=== PATIENT | female | born 1980 | race Asian ===

== ENCOUNTER 2016-11-21 21:29 | Emergency (ER) | payer OTHER ==
[~2016-11-21] VITALS: Ht 162.6 cm; Wt 59.0 kg
[2016-11-21] MEDS ORDERED: ONDANSETRON HCL 4 MG/2 ML VIAL ONE (21:33)
[2016-11-21] MEDS ORDERED: HYDROmorphone HCL 2 MG/ML VL ONE (21:33)
[2016-11-21] MEDS ORDERED: HYDROmorphone HCL 2 MG/ML VL IV ONE (21:45)
[2016-11-21] MEDS ORDERED: ONDANSETRON HCL 4 MG/2 ML VIAL IV ONE (21:45)
[2016-11-21 21:55] LABS: Basophils # (auto) 0.1 uL; Basophils % (auto) 0.8 % (0.0-2.0); DEFINITIVE VIEW TRANSMISSION; Eosinophils # (auto) 0.1 uL; Eosinophils % (auto) 1.9 % (0.0-7.0); Hematocrit 35.8 % (36.0-46.0); Hemoglobin 11.9 g/dL (12.2-16.2); Lymphocytes # (auto) 1.6 uL; Lymphocytes % (auto) 20.8 % (10.0-50.0); Mean Corpuscular Hemoglobin 26.6 pg (28.0-32.0); Mean Corpuscular Hgb Conc. 33.4 g/dL (32.0-36.0); Mean Corpuscular Volume 79.7 fL (80.0-100.0); Mean Platelet Volume 8.3 fL (7.4-10.4); Monocytes # (auto) 0.7 uL; Neutrophils # (auto) 5.3 uL; Neutrophils % (auto) 67.5 % (37.0-80.0); Platelet Count (auto) 440 10^3/uL (140-450); White Blood Cell 7.9 10^3/uL (4.4-10.8)
[2016-11-21 22:07] VITALS: BP 136/90
[2016-11-21 22:18] LABS: Albumin 3.9 g/dL (3.4-5.0); BUN/Creatinine Ratio 12.7; Bilirubin, Total 0.2 mg/dL (0.2-1.0); Calcium 9.7 mg/dL (8.5-10.1); Magnesium 2.1 mg/dL (1.6-2.6); Total Protein 7.5 g/dL (6.4-8.2)
[2016-11-21 22:35] LABS: INR 1.03 (0.9-1.15); Partial Thromboplastin Time 23.6 sec (22.64-33.71); Prothrombin Time 10.6 sec (9.37-12.3)
== END 2016-11-21 23:26 | disposition home or self-care (01) ==
LOC: ER 21:31
DX: K86.9 Disease of pancreas, unspecified (principal); I10 Essential (primary) hypertension; E07.9 Disorder of thyroid, unspecified; Z88.6 Allergy status to analgesic agent
CPT/HCPCS: 36415; 74176; 80053; 82150; 83690; 83735; 84702; 85025; 85610; 85730; 96374; 96375; 99285; J1170; J2405

== ENCOUNTER → 2017-02-21 | Outpatient (CLI) | payer OTHER | END | disposition home or self-care (01) | LOC: LAB 04:21 | PROVIDERS: ATTEND Family Medicine | DX: Z00.00 Encounter for general adult medical examination without abnormal findings (principal) | CPT/HCPCS: 36415; 82565; 84520 ==

== ENCOUNTER 2017-08-22 15:03 | Inpatient (IN) | payer OTHER ==
[~2017-08-22] VITALS: Ht 160 cm; Wt 65.7 kg
[2017-08-22] MEDS ORDERED: SODIUM CHLORIDE 0.9% 1,000 ML IV ONE ×2 (15:24)
[2017-08-22] MEDS ORDERED: MORPHINE SULF INJ 2 MG/ML SYRINGE 1ML IV ONE ×3 (15:30→17:15)
[2017-08-22] MEDS ORDERED: ONDANSETRON HCL 4 MG/2 ML VIAL IV ONE ×2 (15:30→23:15)
[2017-08-22 16:00] LABS: Basophils # (auto) 0 uL; Eosinophils % (auto) 2.8 % (0.0-7.0); Hemoglobin 12.7 g/dL (12.2-16.2); Lymphocytes # (auto) 1.5 uL
[2017-08-22 16:02] LABS: Basophils % (auto) 0.3 % (0.0-2.0); Eosinophils # (auto) 0.2 uL; Hematocrit 38.3 % (36.0-46.0); Lymphocytes % (auto) 17.1 % (10.0-50.0); Mean Corpuscular Hemoglobin 26.7 pg (28.0-32.0); Mean Corpuscular Hgb Conc. 33.2 g/dL (32.0-36.0); Mean Corpuscular Volume 80.4 fL (80.0-100.0); Mean Platelet Volume 7.5 fL (6.9-10.8); Monocytes # (auto) 0.5 uL; Monocytes % (auto) 5.3 % (0.0-12.0); Neutrophils # (auto) 6.7 uL; Neutrophils % (auto) 74.5 % (37.0-80.0); Nucleated Red Blood Cells % 0.2 %; Platelet Count (auto) 363 10^3/uL (140-450); White Blood Cell 8.9 10^3/uL (4.4-10.8)
[2017-08-22 16:14] LABS: Urine Bilirubin Negative (Negative); Urine Blood 3+ /uL (Negative); Urine Ca Oxalate Crystal FEW (None Seen); Urine Color Yellow (Yellow); Urine Glucose Normal (Normal); Urine Ketone Negative (Negative); Urine Mucus FEW (None Seen); Urine Nitrite Negative (Negative); Urine RBC 516 /hpf (0 - 4); Urine Squamous Epithelial Cell FEW /hpf (<5); Urine Urobilinogen Normal (Negative); Urine pH 5.5 (5.0-8.0)
[2017-08-22] MEDS ORDERED: cefTRIAXone 1GM/10ml IVPUSH 10 ML IV ONE (16:30)
[2017-08-22] MEDS ORDERED: HYDROmorphone HCL 2 MG/ML VL IV ONE (16:30)
[2017-08-22 16:32] LABS: Albumin 4.3 g/dL (3.4-5.0); Alkaline Phosphatase 52 U/L (45-117); Amylase 56 U/L (25-115); Anion Gap 11 (5-15); Aspartate Aminotransferase 12 U/L (15-37); BUN/Creatinine Ratio 18.7; Bilirubin, Total 0.3 mg/dL (0.2-1.0); Blood Urea Nitrogen 14 mg/dL (7-18); Calcium 10.2 mg/dL (8.5-10.1); Carbon Dioxide 23 mmol/L (21-32); Chloride 102 mmol/L (98-107); GFR African American 111 mL/min; GFR Non-African American 91 mL/min; Glucose 129 mg/dL (74-106); Potassium 3.4 mmol/L (3.5-5.1); Sodium 136 mmol/L (136-145); Total Protein 8.3 g/dL (6.4-8.2)
[2017-08-22] MEDS ORDERED: metroNIDAZOLE 500MG/100ML 100 ML IV ONE (16:45)
[2017-08-22] MEDS ORDERED: PROMETHAZINE HCL 25 MG/ML 1ML IV ONE (16:45)
[2017-08-22 17:25] LABS: INR 0.92 (0.9-1.15)
[2017-08-22] MEDS ORDERED: ONDANSETRON HCL 4 MG/2 ML VIAL ONE (22:36)
[2017-08-22] MEDS: MORPHINE SULF INJ 2 MG/ML SYRINGE 1ML IV PRN (23:39)
[2017-08-23] VITALS: BP 110/78
[2017-08-23] MEDS ORDERED: AMLO5TAB2 PO (00:40)
[2017-08-23] MEDS ORDERED: LEVO100T8 PO (00:40)
[2017-08-23] MEDS ORDERED: CARV25TA55 PO (00:40)
[2017-08-23] MEDS ORDERED: POTASSIUM CHL 10 Meq TABLET PO ONE (01:15)
[2017-08-23] MEDS: metroNIDAZOLE 500MG/100ML 100 ML IV SCH ×3 (01:34→18:04)
[2017-08-23 05:00] VITALS: BP 100/65
[2017-08-23] MEDS: LEVOTHYROXINE SODIUM 100 MCG TAB PO SCH (05:57)
[2017-08-23 06:11] LABS: Basophils # (auto) 0 uL; Basophils % (auto) 0.4 % (0.0-2.0); Eosinophils # (auto) 0.2 uL; Monocytes # (auto) 0.5 uL; Monocytes % (auto) 6.3 % (0.0-12.0); Neutrophils % (auto) 64.2 % (37.0-80.0)
[2017-08-23 06:13] LABS: Eosinophils % (auto) 2.6 % (0.0-7.0); Hematocrit 36.3 % (36.0-46.0); Lymphocytes # (auto) 2.2 uL; Lymphocytes % (auto) 26.5 % (10.0-50.0); Mean Corpuscular Hgb Conc. 33.1 g/dL (32.0-36.0); Mean Corpuscular Volume 81.6 fL (80.0-100.0); Mean Platelet Volume 7.8 fL (6.9-10.8); Neutrophils # (auto) 5.4 uL; Nucleated Red Blood Cells % 0.1 %; Platelet Count (auto) 369 10^3/uL (140-450); White Blood Cell 8.3 10^3/uL (4.4-10.8)
[2017-08-23 06:41] LABS: BUN/Creatinine Ratio 15.5; Calcium 9.4 mg/dL (8.5-10.1); Potassium 3.3 mmol/L (3.5-5.1)
[2017-08-23] MEDS ORDERED: SUCCINYLCHOLINE CHLORIDE 20 MG/ML 10ML VIAL IV ONE (06:49)
[2017-08-23] MEDS ORDERED: SODIUM CHLORIDE LOCK 10 ML ONE (06:58)
[2017-08-23] MEDS ORDERED: MIDAZOLAM HCL 1MG/1ML-2 ML VIAL ONE (06:58)
[2017-08-23] MEDS ORDERED: PROPOFOL 10 MG/ML 20 ML IV ONE (06:58)
[2017-08-23] MEDS ORDERED: fentaNYL CITRATE 100 MCG/2 ML VL ONE (06:58)
[2017-08-23] MEDS ORDERED: GLYCOPYRROLATE 0.2 MG/ML 1ML VIAL ONE (06:58)
[2017-08-23] MEDS ORDERED: MEPERIDINE HCL (50 MG/ML) 1 ML VIAL ONE (06:58)
[2017-08-23] MEDS ORDERED: NEOSTIGMINE 1 MG/ML INJ (10mg/10ML VIAL) ONE (06:58)
[2017-08-23] MEDS ORDERED: KETOROLAC TROMETH 60MG/2ML VIAL IM ONE (06:58)
[2017-08-23] MEDS ORDERED: ONDANSETRON HCL 4 MG/2 ML VIAL ONE (06:58)
[2017-08-23] MEDS ORDERED: ROCURONIUM 10MG/ML 10ML VIAL IV ONE (06:58)
[2017-08-23] MEDS ORDERED: ceFAZolin 1GM/50ML 50 ML IV ONE (07:05)
[2017-08-23] MEDS ORDERED: HYDROmorphone HCL 2 MG/ML VL IV PRN (07:30)
[2017-08-23] MEDS ORDERED: METOCLOPRAMIDE HCL 5MG/ml INJ 2ml VIAL IV ONE (07:30)
[2017-08-23] MEDS ORDERED: ACCU-CHEK COMFORT CURVE STRIP VI ONE (07:30)
[2017-08-23 09:00] VITALS: BP 125/75
[2017-08-23] MEDS: amLODIPine BESYLATE 5 MG TAB PO SCH (10:00)
[2017-08-23] MEDS: ONDANSETRON HCL 4 MG/2 ML VIAL IV PRN ×2 (12:04→21:51)
[2017-08-23] MEDS: MORPHINE SULF INJ 2 MG/ML SYRINGE 1ML IV PRN ×2 (12:04→21:37)
[2017-08-23 13:00] VITALS: BP 115/70
[2017-08-23 17:00] VITALS: BP 101/60
[2017-08-23 21:27] VITALS: BP 127/70
[2017-08-23] MEDS: CARVEDILOL 12.5 MG TAB PO SCH (21:38)
[2017-08-23] MEDS: cefTRIAXone 1GM/10ml IVPUSH 10 ML IV SCH (21:50)
[2017-08-24] VITALS (7 sets, daily range): BP systolic 104–123; BP diastolic 63–82
[2017-08-24] MEDS: metroNIDAZOLE 500MG/100ML 100 ML IV SCH ×3 (01:52→18:36)
[2017-08-24] MEDS: LEVOTHYROXINE SODIUM 100 MCG TAB PO SCH (06:26)
[2017-08-24] MEDS: amLODIPine BESYLATE 5 MG TAB PO SCH (09:40)
[2017-08-24] MEDS ORDERED: DOCUSATE SOD 100 MG CAP PO ONE (10:15)
[2017-08-24] MEDS: DOCUSATE SOD 100 MG CAP PO SCH (22:00)
[2017-08-24] MEDS: cefTRIAXone 1GM/10ml IVPUSH 10 ML IV SCH (22:01)
[2017-08-24] MEDS: CARVEDILOL 12.5 MG TAB PO SCH (22:02)
[2017-08-25] MEDS: metroNIDAZOLE 500MG/100ML 100 ML IV SCH ×2 (02:56→09:17)
[2017-08-25 05:18] VITALS: BP 124/67
[2017-08-25] MEDS: LEVOTHYROXINE SODIUM 100 MCG TAB PO SCH (06:56)
[2017-08-25 07:48] VITALS: BP 135/80
[2017-08-25] MEDS: ONDANSETRON HCL 4 MG/2 ML VIAL IV PRN (08:20)
[2017-08-25] MEDS: amLODIPine BESYLATE 5 MG TAB PO SCH (09:17)
[2017-08-25] MEDS: DOCUSATE SOD 100 MG CAP PO SCH (09:17)
[2017-08-25 09:44] VITALS: BP 135/80
== END 2017-08-25 10:25 | disposition home or self-care (01) | DRG 343 ==
LOC: ER 15:19 → OVERFLOW 15:20 → EAST 23:55
PROVIDERS: ADMIT Nurse Practitioner Family; ATTEND Internal Medicine
PROC: 0DTJ4ZZ Resection of Appendix, Percutaneous Endoscopic Approach (ICD-10-PCS; principal; 2017-08-23 07:29)
DX: K35.80 Unspecified acute appendicitis (principal); E03.9 Hypothyroidism, unspecified; I10 Essential (primary) hypertension; Z88.6 Allergy status to analgesic agent
CPT/HCPCS: 36415; 74176; 76705; 80048; 80053; 81001; 82150; 82962; 83690; 84443; 84484; 84702; 85025; 85610; 86850; 86900; 86901; 87040; 87081; 96361; 96365; 96368; 96375; J0330; J0690; J1885; J2250; J2405; J2704; J3490

== ENCOUNTER 2017-12-19 01:38 | Emergency (ER) | payer BC, OTHER ==
[~2017-12-19] VITALS: Ht 160 cm; Wt 65.8 kg
[~2017-12-19 01:38] MED LIST: AMLO5TAB2 PO; CARV25TA55 PO; LEVO100T8 PO
[2017-12-19] MEDS ORDERED: ONDANSETRON HCL 4 MG/2 ML VIAL IV ONE (02:00)
[2017-12-19] MEDS ORDERED: MEPERIDINE HCL (25 MG/ML) 1ML VIAL IV ONE (02:00)
[2017-12-19 02:35] LABS: Eosinophils # (auto) 0.2 uL; Hemoglobin 11.8 g/dL (12.2-16.2); Mean Corpuscular Hemoglobin 26.4 pg (28.0-32.0)
[2017-12-19 02:37] LABS: Basophils # (auto) 0 uL; Basophils % (auto) 0.4 % (0.0-2.0); Eosinophils % (auto) 2.1 % (0.0-7.0); Hematocrit 35.9 % (36.0-46.0); Lymphocytes # (auto) 3.1 uL; Lymphocytes % (auto) 27.4 % (10.0-50.0); Mean Corpuscular Volume 79.9 fL (80.0-100.0); Monocytes # (auto) 0.9 uL; Monocytes % (auto) 7.8 % (0.0-12.0); Neutrophils % (auto) 62.3 % (37.0-80.0); Platelet Count (auto) 354 10^3/uL (140-450); Red Blood Cells 4.49 10^6/uL (4.0-5.20); Red Cell Distribution Width 14.9 % (11.8-14.3); White Blood Cell 11.3 10^3/uL (4.4-10.8)
[2017-12-19] MEDS ORDERED: MEPERIDINE HCL (50 MG/ML) 1 ML VIAL IV ONE (02:45)
[2017-12-19 02:54] LABS: Albumin 4.4 g/dL (3.4-5.0); BUN/Creatinine Ratio 14.3; Calcium 10.4 mg/dL (8.5-10.1); Potassium 3.3 mmol/L (3.5-5.1)
[2017-12-19 02:57] LABS: Bilirubin, Total 0.4 mg/dL (0.2-1.0); Total Protein 7.8 g/dL (6.4-8.2)
[2017-12-19 04:00] VITALS: BP 132/67
[2017-12-19 05:07] LABS: Urine Bacteria NONE SEEN /hpf (None Seen); Urine Blood 3+ /uL (Negative); Urine Specific Gravity 1.007 (1.001-1.035); Urine WBC 16 /hpf (0 - 5)
== END 2017-12-19 05:12 | disposition home or self-care (01) ==
LOC: EEVIPCON 01:40 → ER 01:40
DX: N80.9 Endometriosis, unspecified (principal); N94.6 Dysmenorrhea, unspecified; I10 Essential (primary) hypertension; E07.9 Disorder of thyroid, unspecified; D72.823 Leukemoid reaction; Z90.49 Acquired absence of other specified parts of digestive tract; Z88.6 Allergy status to analgesic agent; Z79.899 Other long term (current) drug therapy
CPT/HCPCS: 36415; 80053; 81001; 85025; 96374; 96375; 96376; 99284; J2175; J2405

== ENCOUNTER → 2018-01-11 | Outpatient (CLI) | payer BC ==
[2018-01-11 08:23] LABS: Basophils # (auto) 0 uL; Eosinophils # (auto) 0.3 uL; Hemoglobin 11.8 g/dL (12.2-16.2); Lymphocytes # (auto) 2.3 uL; Monocytes % (auto) 8.7 % (0.0-12.0)
[2018-01-11 08:26] LABS: Basophils % (auto) 0.6 % (0.0-2.0); Eosinophils % (auto) 4.9 % (0.0-7.0); Lymphocytes % (auto) 36.4 % (10.0-50.0); Mean Corpuscular Hemoglobin 26.2 pg (28.0-32.0); Mean Corpuscular Hgb Conc. 32.8 g/dL (32.0-36.0); Mean Corpuscular Volume 79.9 fL (80.0-100.0); Monocytes # (auto) 0.6 uL; Neutrophils # (auto) 3.2 uL; Neutrophils % (auto) 49.4 % (37.0-80.0); Nucleated Red Blood Cells % 0.1 %; Platelet Count (auto) 351 10^3/uL (140-450); Red Cell Distribution Width 14.5 % (11.8-14.3); White Blood Cell 6.4 10^3/uL (4.4-10.8)
[2018-01-11 08:46] LABS: Albumin 4.2 g/dL (3.4-5.0); BUN/Creatinine Ratio 11.5; Bilirubin, Total 0.3 mg/dL (0.2-1.0); Calcium 9.5 mg/dL (8.5-10.1); Potassium 3.4 mmol/L (3.5-5.1); Total Protein 7.7 g/dL (6.4-8.2); Uric Acid 4.4 mg/dL (2.6-6.0)
[2018-01-11 08:49] LABS: Urine Bacteria NONE SEEN /hpf (None Seen); Urine Blood Negative /uL (Negative); Urine Specific Gravity 1.017 (1.001-1.035); Urine WBC 2 /hpf (0 - 5)
== END | disposition home or self-care (01) ==
LOC: LAB 07:44
DX: Z00.01 Encounter for general adult medical examination with abnormal findings (principal); I10 Essential (primary) hypertension; E03.9 Hypothyroidism, unspecified; N89.9 Noninflammatory disorder of vagina, unspecified
CPT/HCPCS: 36415; 80053; 80061; 81001; 82306; 82607; 83036; 83735; 84443; 84550; 85025

== ENCOUNTER 2018-04-24 08:56 | Day surgery (SDC) | payer BC ==
[2018-04-20 14:53] LABS: Basophils # (auto) 0 uL; Eosinophils # (auto) 0.3 uL; Hemoglobin 12.3 g/dL (12.2-16.2); Lymphocytes # (auto) 2.8 uL; Mean Corpuscular Hgb Conc. 31.8 g/dL (32.0-36.0); Monocytes # (auto) 0.7 uL; Neutrophils # (auto) 3.9 uL; Nucleated Red Blood Cells % 0.1 %
[2018-04-20 14:54] LABS: Basophils % (auto) 0.6 % (0.0-2.0); Eosinophils % (auto) 4.1 % (0.0-7.0); Hematocrit 38.7 % (36.0-46.0); Lymphocytes % (auto) 36.5 % (10.0-50.0); Mean Corpuscular Volume 78.5 fL (80.0-100.0); Monocytes % (auto) 8.8 % (0.0-12.0); Platelet Count (auto) 426 10^3/uL (140-450); Red Blood Cells 4.92 10^6/uL (4.0-5.20); Red Cell Distribution Width 14.7 % (11.8-14.3); White Blood Cell 7.7 10^3/uL (4.4-10.8)
[2018-04-20 15:01] LABS: Urine Bacteria FEW /hpf (None Seen); Urine Blood TRACE /uL (Negative); Urine Mucus FEW (None Seen); Urine WBC 3 /hpf (0 - 5)
[2018-04-20 15:13] LABS: INR 0.9 (0.9-1.15); Prothrombin Time 9.7 sec (9.27-12.13)
[2018-04-20 15:18] LABS: Albumin 4.2 g/dL (3.4-5.0); BUN/Creatinine Ratio 12.2; Bilirubin, Total 0.3 mg/dL (0.2-1.0); Calcium 10.1 mg/dL (8.5-10.1); Potassium 3.4 mmol/L (3.5-5.1); Total Protein 8.2 g/dL (6.4-8.2)
[~2018-04-24] VITALS: Ht 160 cm; Wt 66.2 kg
[~2018-04-24 08:56] MED LIST changes: +METF-370 PO; +SIMV-8 PO
[2018-04-24] MEDS ORDERED: ceFAZolin 1GM/50ML 50 ML IV ONE (09:06)
[2018-04-24] MEDS ORDERED: MIDAZOLAM HCL 1MG/1ML-2 ML VIAL ONE (10:22)
[2018-04-24] MEDS ORDERED: fentaNYL CITRATE 100 MCG/2 ML VL ONE (10:22)
[2018-04-24] MEDS ORDERED: DEXAMETHASONE SOD PHOS 10MG/1ML VIAL INJ ONE (10:27)
[2018-04-24] MEDS ORDERED: PROPOFOL 10 MG/ML 20 ML IV ONE (10:28)
[2018-04-24] MEDS ORDERED: ONDANSETRON HCL 4 MG/2 ML VIAL IV ONE (10:45)
[2018-04-24] MEDS ORDERED: MORPHINE SULFATE 4 MG/ML SYR/VIAL IV PRN (10:45)
[2018-04-24] MEDS ORDERED: LABETALOL HCL 5 MG/ML 4ML SYRINGE IV PRN (10:45)
[2018-04-24] MEDS ORDERED: ePHEDrine SULFATE 50 MG/ML AMP IV PRN (10:45)
[2018-04-24] MEDS ORDERED: MIDAZOLAM HCL 1MG/1ML-2 ML VIAL IV PRN (10:45)
[2018-04-24] MEDS ORDERED: KETOROLAC TROMETH 30 MG/ML 1ML VIAL IV ONE (11:15)
[2018-04-24 11:42] VITALS: BP 122/73
[2018-04-24] MEDS ORDERED: MORPHINE SULFATE 4 MG/ML SYR/VIAL IV ONE (12:00)
== END 2018-04-24 11:50 | disposition home or self-care (01) ==
LOC: SUR 08:56
PROVIDERS: ATTEND Urology
DX: N20.0 Calculus of kidney (principal); E28.2 Polycystic ovarian syndrome; N80.9 Endometriosis, unspecified; D21.9 Benign neoplasm of connective and other soft tissue, unspecified; I10 Essential (primary) hypertension; E03.9 Hypothyroidism, unspecified; E11.9 Type 2 diabetes mellitus without complications; Z88.6 Allergy status to analgesic agent; Z90.49 Acquired absence of other specified parts of digestive tract; Z80.0 Family history of malignant neoplasm of digestive organs; Z82.49 Family history of ischemic heart disease and other diseases of the circulatory system; Z79.84 Long term (current) use of oral hypoglycemic drugs; Z79.899 Other long term (current) drug therapy
CPT/HCPCS: 36415; 50590; 80053; 81001; 84702; 85025; 85610; 85730; J0690; J1100; J2250; J2704; J3010

== ENCOUNTER → 2018-07-05 | Outpatient (CLI) | payer BC ==
[~2018-07-05] MED LIST changes: +AMLO5TAB13 PO; -AMLO5TAB2 PO
[2018-07-05 11:23] LABS: Cholesterol 156 mg/dL (< 200); Triglycerides 105 mg/dL (< 150)
[2018-07-05 11:24] LABS: HDL Cholesterol 61 mg/dL (40-59); LDL Cholesterol 87 mg/dL (< 100)
[2018-07-05 11:39] LABS: Follicle Stimulating Hormone 7.16 IU/L (SEE BELOW); Leuteinizing Hormone 5.1 IU/L; Prolactin 11.11 ng/mL (2.8-29.2)
== END | disposition home or self-care (01) ==
LOC: LAB 10:09
PROVIDERS: ATTEND Specialist
DX: E28.2 Polycystic ovarian syndrome (principal); I10 Essential (primary) hypertension; E03.9 Hypothyroidism, unspecified
CPT/HCPCS: 36415; 80061; 82626; 83001; 83002; 83036; 83525; 84146; 84403; 84443

== ENCOUNTER 2018-07-15 08:13 | Emergency (ER) | payer BC ==
[~2018-07-15] VITALS: Ht 160 cm; Wt 66.2 kg
[2018-07-15] MEDS ORDERED: SODIUM CHLORIDE 0.9% 1,000 ML IV ONE ×2 (08:47)
[2018-07-15 08:53] LABS: Urine Bacteria NONE SEEN /hpf (None Seen); Urine Blood Negative /uL (Negative); Urine Specific Gravity 1.008 (1.001-1.035); Urine WBC 1 /hpf (0 - 5)
[2018-07-15] MEDS ORDERED: KETOROLAC TROMETH 30 MG/ML 1ML VIAL IV ONE (09:00)
[2018-07-15 09:10] LABS: Basophils # (auto) 0.1 uL; Eosinophils # (auto) 0.3 uL; Hemoglobin 11.1 g/dL (12.2-16.2); Lymphocytes # (auto) 2.1 uL; Monocytes # (auto) 0.6 uL; Neutrophils # (auto) 5.3 uL
[2018-07-15 09:13] LABS: Basophils % (auto) 0.6 % (0.0-2.0); Eosinophils % (auto) 3.3 % (0.0-7.0); Hematocrit 35.6 % (36.0-46.0); Lymphocytes % (auto) 25.6 % (10.0-50.0); Mean Corpuscular Hemoglobin 23.5 pg (28.0-32.0); Mean Corpuscular Hgb Conc. 31.2 g/dL (32.0-36.0); Mean Corpuscular Volume 75.3 fL (80.0-100.0); Monocytes % (auto) 6.9 % (0.0-12.0); Neutrophils % (auto) 63.6 % (37.0-80.0); Platelet Count (auto) 453 10^3/uL (140-450); Red Blood Cells 4.72 10^6/uL (4.0-5.20); White Blood Cell 8.3 10^3/uL (4.4-10.8)
[2018-07-15 09:28] LABS: Albumin 4.1 g/dL (3.4-5.0); Calcium 10.6 mg/dL (8.5-10.1); Potassium 3.7 mmol/L (3.5-5.1)
[2018-07-15 09:34] LABS: BUN/Creatinine Ratio 13.5; Bilirubin, Total 0.4 mg/dL (0.2-1.0); Total Protein 7.8 g/dL (6.4-8.2)
[2018-07-15 10:28] VITALS: BP 146/56
[2018-07-15] MEDS ORDERED: TAMSULOSIN HYDROCHLORIDE 0.4 MG CAP PO ONE (11:00)
== END 2018-07-15 11:44 | disposition home or self-care (01) ==
LOC: ER 08:13
DX: N20.0 Calculus of kidney (principal); I10 Essential (primary) hypertension; E07.89 Other specified disorders of thyroid; N83.209 Unspecified ovarian cyst, unspecified side; Z90.89 Acquired absence of other organs; Z88.8 Allergy status to other drugs, medicaments and biological substances
CPT/HCPCS: 36415; 74176; 80053; 81001; 81025; 85025; 96374; 96375; 99285; J1885

== ENCOUNTER 2018-07-28 21:33 | Emergency (ER) | payer BC ==
[~2018-07-28] VITALS: Ht 160 cm; Wt 65.8 kg
[2018-07-28] MEDS ORDERED: ONDANSETRON HCL 4 MG/2 ML VIAL ONE (21:45)
[2018-07-28] MEDS ORDERED: MORPHINE SULFATE 4 MG/ML SYR/VIAL ONE (21:45)
[2018-07-28 21:57] LABS: Basophils # (auto) 0.1 uL; Basophils % (auto) 0.7 % (0.0-2.0); Eosinophils # (auto) 0.2 uL; Eosinophils % (auto) 1.8 % (0.0-7.0); Hematocrit 36.5 % (36.0-46.0); Hemoglobin 11.8 g/dL (12.2-16.2); Lymphocytes # (auto) 2.1 uL; Lymphocytes % (auto) 14.9 % (10.0-50.0); Mean Corpuscular Hemoglobin 24.2 pg (28.0-32.0); Mean Corpuscular Hgb Conc. 32.4 g/dL (32.0-36.0); Mean Corpuscular Volume 74.8 fL (80.0-100.0); Monocytes # (auto) 1.3 uL; Monocytes % (auto) 9.2 % (0.0-12.0); Neutrophils # (auto) 10.1 uL; Neutrophils % (auto) 73.4 % (37.0-80.0); Platelet Count (auto) 415 10^3/uL (140-450); Red Blood Cells 4.88 10^6/uL (4.0-5.20); White Blood Cell 13.8 10^3/uL (4.4-10.8)
[2018-07-28] MEDS ORDERED: MORPHINE SULFATE 4 MG/ML SYR/VIAL IV ONE (22:00)
[2018-07-28] MEDS ORDERED: ONDANSETRON HCL 4 MG/2 ML VIAL IV ONE (22:00)
[2018-07-28 22:15] LABS: Albumin 4.6 g/dL (3.4-5.0); BUN/Creatinine Ratio 9.6; Calcium 10.8 mg/dL (8.5-10.1); Potassium 3.6 mmol/L (3.5-5.1)
[2018-07-28 22:18] LABS: Bilirubin, Total 0.4 mg/dL (0.2-1.0); Total Protein 8.7 g/dL (6.4-8.2)
[2018-07-28] MEDS ORDERED: HYDROmorphone HCL 2 MG/ML VL IV ONE (23:00)
[2018-07-29] MEDS ORDERED: HYDROcodone-ACET 10/325MG TAB PO ONE (01:45)
[2018-07-29] MEDS ORDERED: cefTRIAXone 1GM/50ML D5W 50 ML IV ONE (01:45)
[2018-07-29 03:04] VITALS: BP 123/78
== END 2018-07-29 03:06 | disposition home or self-care (01) ==
LOC: ER 21:34
DX: N83.201 Unspecified ovarian cyst, right side (principal); N83.202 Unspecified ovarian cyst, left side; N39.0 Urinary tract infection, site not specified; D25.9 Leiomyoma of uterus, unspecified; I10 Essential (primary) hypertension; E07.89 Other specified disorders of thyroid; Z87.442 Personal history of urinary calculi; Z88.8 Allergy status to other drugs, medicaments and biological substances; Z88.6 Allergy status to analgesic agent
CPT/HCPCS: 36415; 74176; 76856; 80053; 84702; 85025; 96365; 96375; 99285; J0696; J1170; J2270; J2405

== ENCOUNTER → 2018-08-02 | Outpatient (CLI) | payer OTHER ==
[2018-08-02 11:16] LABS: Hepatitis B Surface Antibody Positive
[2018-08-02 12:13] LABS: Hepatitis B Surface Antigen Negative (Negative)
== END | disposition home or self-care (01) ==
LOC: LAB 09:23
PROVIDERS: ATTEND Nurse Practitioner
DX: Z77.21 Contact with and (suspected) exposure to potentially hazardous body fluids (principal); Y99.0 Civilian activity done for income or pay; Y92.239 Unspecified place in hospital as the place of occurrence of the external cause
CPT/HCPCS: 36415; 86703; 86706; 86803; 87340

== ENCOUNTER → 2018-08-02 | Outpatient (CLI) | payer BC ==
[2018-08-02 11:09] LABS: Cholesterol 228 mg/dL (< 200); HDL Cholesterol 60 mg/dL (40-59); LDL Cholesterol 149 mg/dL (< 100); Triglycerides 147 mg/dL (< 150)
[2018-08-02 11:15] LABS: Free T3 2.25 pg/mL (2.3-4.2); Free T4 (Free Thyroxine) 1.13 ng/dL (0.89-1.76)
== END | disposition home or self-care (01) ==
LOC: LAB 09:17
PROVIDERS: ATTEND Specialist
DX: E03.9 Hypothyroidism, unspecified (principal)
CPT/HCPCS: 36415; 80061; 84439; 84481

== ENCOUNTER → 2018-08-15 | Outpatient (CLI) | payer BC | END | disposition home or self-care (01) | LOC: LAB 11:17 | PROVIDERS: ATTEND Specialist | DX: D25.9 Leiomyoma of uterus, unspecified (principal); N80.9 Endometriosis, unspecified; R10.2 Pelvic and perineal pain | CPT/HCPCS: 36415; 82565; 84520 ==

== ENCOUNTER → 2018-08-31 | Day surgery (SDC) | payer BC ==
[2018-08-28 12:30] LABS: Basophils # (auto) 0 uL; Eosinophils # (auto) 0.3 uL; Hemoglobin 11.1 g/dL (12.2-16.2); Monocytes # (auto) 0.5 uL; White Blood Cell 6.1 10^3/uL (4.4-10.8)
[2018-08-28 12:32] LABS: Basophils % (auto) 0.6 % (0.0-2.0); Eosinophils % (auto) 4.7 % (0.0-7.0); Hematocrit 35.2 % (36.0-46.0); Lymphocytes # (auto) 1.9 uL; Lymphocytes % (auto) 31.5 % (10.0-50.0); Mean Corpuscular Hemoglobin 23.1 pg (28.0-32.0); Mean Corpuscular Hgb Conc. 31.4 g/dL (32.0-36.0); Mean Corpuscular Volume 73.4 fL (80.0-100.0); Monocytes % (auto) 7.9 % (0.0-12.0); Neutrophils # (auto) 3.4 uL; Neutrophils % (auto) 55.3 % (37.0-80.0); Platelet Count (auto) 353 10^3/uL (140-450); Red Cell Distribution Width 16.9 % (11.8-14.3)
[2018-08-28 12:34] LABS: Urine Bacteria NONE SEEN /hpf (None Seen); Urine Blood Negative /uL (Negative); Urine Specific Gravity 1.008 (1.001-1.035); Urine WBC 1 /hpf (0 - 5)
[2018-08-28 12:46] LABS: INR 0.92 (0.9-1.15); Prothrombin Time 9.9 sec (9.27-12.13)
[2018-08-28 12:50] LABS: Albumin 4.3 g/dL (3.4-5.0); BUN/Creatinine Ratio 14.3; Calcium 10.8 mg/dL (8.5-10.1); Potassium 3.9 mmol/L (3.5-5.1)
[2018-08-28 13:08] LABS: Bilirubin, Total 0.3 mg/dL (0.2-1.0); Total Protein 7.9 g/dL (6.4-8.2)
[~2018-08-31] VITALS: Ht 157.5 cm; Wt 66.2 kg
[~2018-08-31] MED LIST changes: +ACCU-CHEK COMFORT CURVE STRIP VI ONE; +BENZOCAINE (DENTAL) 20 % SPRAY 60ML MT ONE; +CLINDAMYCIN 600MG IV 50 ML IV ONE; +DEXAMETHASONE SOD PHOS 10MG/1ML VIAL INJ ONE; +ELAG150T PO; +HYDROmorphone HCL 2 MG/ML VL IV PRN; +KETOROLAC TROMETH 30 MG/ML 1ML VIAL IV ONE; +KETOROLAC TROMETH 30 MG/ML 1ML VIAL ONE; +LABETALOL HCL 5 MG/ML 4ML SYRINGE IV PRN; +LACTATED RINGER'S 1,000 ML IV SCH; +MEPERIDINE HCL (50 MG/ML) 1 ML VIAL ONE; +METOCLOPRAMIDE HCL 5MG/ml INJ 2ml VIAL IV ONE; +METOCLOPRAMIDE HCL 5MG/ml INJ 2ml VIAL ONE; +MIDAZOLAM HCL 1MG/1ML-2 ML VIAL IV PRN; +MIDAZOLAM HCL 1MG/1ML-2 ML VIAL ONE; +MORPHINE SULFATE 4 MG/ML SYR/VIAL IV ONE; +MORPHINE SULFATE 4 MG/ML SYR/VIAL IV PRN; +ONDANSETRON HCL 4 MG/2 ML VIAL IV ONE; +PROPOFOL 10 MG/ML 20 ML IV ONE; +ePHEDrine SULFATE 50 MG/ML AMP IV PRN; +fentaNYL CITRATE 100 MCG/2 ML VL ONE
[2018-08-31 13:49] VITALS: BP 120/74
== END | disposition home or self-care (01) ==
LOC: SUR 07:01
PROVIDERS: ATTEND Specialist
DX: D25.9 Leiomyoma of uterus, unspecified (principal); N94.6 Dysmenorrhea, unspecified; E28.2 Polycystic ovarian syndrome; N80.1 Endometriosis of ovary; I10 Essential (primary) hypertension; E03.9 Hypothyroidism, unspecified; D64.9 Anemia, unspecified; N73.6 Female pelvic peritoneal adhesions (postinfective); Z90.49 Acquired absence of other specified parts of digestive tract; Z79.84 Long term (current) use of oral hypoglycemic drugs; Z79.899 Other long term (current) drug therapy; Z88.6 Allergy status to analgesic agent
CPT/HCPCS: 36415; 49320; 80053; 81001; 84702; 85025; 85610; 85730; 86850; 86900; 86901; J1100; J1885; J2175; J2250; J2405; J2704; J2765; J3010; J3490

== ENCOUNTER 2018-12-23 04:49 | Inpatient (IN) | payer BC, OTHER ==
[~2018-12-23] VITALS: Ht 160 cm; Wt 68.8 kg
[~2018-12-23 04:49] MED LIST changes: -ACCU-CHEK COMFORT CURVE STRIP VI ONE; -BENZOCAINE (DENTAL) 20 % SPRAY 60ML MT ONE; -CLINDAMYCIN 600MG IV 50 ML IV ONE; -DEXAMETHASONE SOD PHOS 10MG/1ML VIAL INJ ONE; -HYDROmorphone HCL 2 MG/ML VL IV PRN; -KETOROLAC TROMETH 30 MG/ML 1ML VIAL IV ONE; -KETOROLAC TROMETH 30 MG/ML 1ML VIAL ONE; -LABETALOL HCL 5 MG/ML 4ML SYRINGE IV PRN; -LACTATED RINGER'S 1,000 ML IV SCH; -MEPERIDINE HCL (50 MG/ML) 1 ML VIAL ONE; -METOCLOPRAMIDE HCL 5MG/ml INJ 2ml VIAL IV ONE; -METOCLOPRAMIDE HCL 5MG/ml INJ 2ml VIAL ONE; -MIDAZOLAM HCL 1MG/1ML-2 ML VIAL IV PRN; -MIDAZOLAM HCL 1MG/1ML-2 ML VIAL ONE; -MORPHINE SULFATE 4 MG/ML SYR/VIAL IV ONE; -MORPHINE SULFATE 4 MG/ML SYR/VIAL IV PRN; -ONDANSETRON HCL 4 MG/2 ML VIAL IV ONE; -PROPOFOL 10 MG/ML 20 ML IV ONE; -ePHEDrine SULFATE 50 MG/ML AMP IV PRN; -fentaNYL CITRATE 100 MCG/2 ML VL ONE
[2018-12-23] MEDS ORDERED: SODIUM CHLORIDE 0.9% 1,000 ML IVB ONE (05:33)
[2018-12-23] MEDS ORDERED: ONDANSETRON HCL 4 MG/2 ML VIAL IV ONE (05:45)
[2018-12-23] MEDS ORDERED: HYDROmorphone HCL 2 MG/ML VL IV ONE (05:45)
[2018-12-23 06:04] LABS: Basophils # (auto) 0.1 uL; Eosinophils # (auto) 0.4 uL; Hemoglobin 13.3 g/dL (12.2-16.2); Mean Corpuscular Hemoglobin 26.9 pg (28.0-32.0); Monocytes # (auto) 0.6 uL; Red Cell Distribution Width 16.1 % (11.8-14.3); White Blood Cell 8.2 10^3/uL (4.4-10.8)
[2018-12-23 06:08] LABS: Basophils % (auto) 0.7 % (0.0-2.0); Eosinophils % (auto) 4.6 % (0.0-7.0); Hematocrit 40.4 % (36.0-46.0); Lymphocytes % (auto) 36.6 % (10.0-50.0); Mean Corpuscular Hgb Conc. 32.8 g/dL (32.0-36.0); Mean Corpuscular Volume 82.2 fL (80.0-100.0); Monocytes % (auto) 7.9 % (0.0-12.0); Neutrophils # (auto) 4.1 uL; Neutrophils % (auto) 50.2 % (37.0-80.0); Nucleated Red Blood Cells % 0.1 %; Platelet Count (auto) 339 10^3/uL (140-450); Red Blood Cells 4.92 10^6/uL (4.0-5.20)
[2018-12-23 06:15] LABS: INR 0.91 (0.9-1.15); Partial Thromboplastin Time 22.9 sec (23.78-33.04); Prothrombin Time 9.8 sec (9.27-12.13)
[2018-12-23 06:17] LABS: Albumin 4.2 g/dL (3.4-5.0); Potassium 3.8 mmol/L (3.5-5.1)
[2018-12-23 06:24] LABS: BUN/Creatinine Ratio 16.3; Bilirubin, Total 0.3 mg/dL (0.2-1.0); Calcium 10.8 mg/dL (8.5-10.1); Total Protein 7.9 g/dL (6.4-8.2)
[2018-12-23] MEDS: SODIUM CHLORIDE 0.9% 1,000 ML IV SCH ×2 (08:12→18:01)
[2018-12-23] MEDS ORDERED: LORazepam 0.5 MG TAB PO PRN (08:15)
[2018-12-23] MEDS ORDERED: MORPHINE SULF INJ 2 MG/ML SYRINGE 1ML IV PRN (08:15)
[2018-12-23] MEDS ORDERED: TEMAZEPAM 15 MG CAP PO PRN (08:15)
[2018-12-23] MEDS ORDERED: DEXTROSE (50%) 50ML SYRG IV PRN (08:15)
[2018-12-23] MEDS ORDERED: NALBUPHINE HCL 10 MG/1ml INJECTION IV PRN (08:15)
[2018-12-23] MEDS ORDERED: traMADol HCL 50 MG TAB PO PRN (08:15)
[2018-12-23] MEDS ORDERED: NITROGLYCERIN 0.4 MG SL TAB SL PRN (08:15)
[2018-12-23] MEDS ORDERED: ACETAMINOPHEN 500 MG TAB PO PRN (08:15)
[2018-12-23] MEDS ORDERED: PROMETHAZINE HCL 25 MG/ML 1ML IV PRN (08:15)
[2018-12-23 09:06] LABS: Urine Bacteria NONE SEEN /hpf (None Seen); Urine Blood Negative /uL (Negative); Urine Specific Gravity 1.012 (1.001-1.035); Urine WBC 3 /hpf (0 - 5)
[2018-12-23] MEDS ORDERED: PANTOPRAZOLE 40 MG TAB PO SCH (10:00)
[2018-12-23] MEDS: ACCU-CHEK COMFORT CURVE STRIP VI SCH ×2 (12:18→18:01)
[2018-12-23] MEDS ORDERED: CHOL100079 OR (13:03)
[2018-12-23 13:30] VITALS: BP 137/78
[2018-12-23 16:50] VITALS: BP 125/75
[2018-12-23 20:00] VITALS: BP 124/73
[2018-12-23] MEDS: PANTOPRAZOLE 40 MG TAB PO SCH (21:25)
[2018-12-23 21:45] VITALS: BP 124/73
[2018-12-24] MEDS: ACCU-CHEK COMFORT CURVE STRIP VI SCH ×4 (00:46→18:07)
[2018-12-24] MEDS: SODIUM CHLORIDE 0.9% 1,000 ML IV SCH (00:47)
[2018-12-24 05:19] VITALS: BP 112/83
[2018-12-24 08:00] VITALS: BP 118/76
[2018-12-24] MEDS ORDERED: SODIUM CHLORIDE LOCK 10 ML ONE (08:29)
[2018-12-24] MEDS ORDERED: LIDOCAINE VISCOUS 2% 15ML UD ONE (08:29)
[2018-12-24] MEDS ORDERED: MIDAZOLAM HCL 5 MG/ML-1ML VIAL ONE (08:30)
[2018-12-24] MEDS ORDERED: fentaNYL CITRATE 100 MCG/2 ML VL ONE (08:30)
[2018-12-24] MEDS ORDERED: diphenhdrAMINE HCL 50 MG/1 ML VL ONE (08:31)
[2018-12-24] MEDS: PANTOPRAZOLE 40 MG TAB PO SCH ×2 (09:33→21:50)
[2018-12-24] MEDS: SOD CHL 0.9%/ KCL 20MEQ 1,000 ML IV SCH (17:50)
[2018-12-24 20:00] VITALS: BP 145/83
[2018-12-24 21:50] VITALS: BP 145/83
[2018-12-25] MEDS: ACCU-CHEK COMFORT CURVE STRIP VI SCH ×2 (00:40→05:49)
[2018-12-25 04:47] VITALS: BP 127/77
[2018-12-25] MEDS: SOD CHL 0.9%/ KCL 20MEQ 1,000 ML IV SCH (05:49)
[2018-12-25 08:09] VITALS: BP 130/82
[2018-12-25 08:27] VITALS: BP 130/82
[2018-12-25] MEDS: PANTOPRAZOLE 40 MG TAB PO SCH (09:49)
[2018-12-25 10:24] VITALS: BP 130/82
== END 2018-12-25 11:00 | disposition home or self-care (01) | DRG 392 ==
LOC: ER 04:49 → EEVIPCON 04:49 → TELE 08:12 → TELE-WESTW 11:36 → WEST WING 12-24 16:48
PROVIDERS: ADMIT Internal Medicine; ATTEND Internal Medicine
PROC: 0DB68ZX Excision of Stomach, Via Natural or Artificial Opening Endoscopic, Diagnostic (ICD-10-PCS; principal; 2018-12-24 10:26)
DX: R10.9 Unspecified abdominal pain (principal); E03.9 Hypothyroidism, unspecified; E11.9 Type 2 diabetes mellitus without complications; R11.10 Vomiting, unspecified; I10 Essential (primary) hypertension; Z82.49 Family history of ischemic heart disease and other diseases of the circulatory system; Z80.0 Family history of malignant neoplasm of digestive organs; Z87.442 Personal history of urinary calculi; Z90.49 Acquired absence of other specified parts of digestive tract; Z88.8 Allergy status to other drugs, medicaments and biological substances
CPT/HCPCS: 36415; 74176; 76705; 78226; 80053; 81001; 82150; 82962; 83036; 83690; 83735; 85025; 85610; 85730; 86850; 86900; 86901; 94761; 96361; 96374; 96375; G0378; J2250; J2405

== ENCOUNTER → 2019-01-24 | Outpatient (CLI) | payer BC ==
[~2019-01-24] MED LIST changes: +CHOL100079 OR
== END | disposition home or self-care (01) ==
LOC: LAB 11:48
PROVIDERS: ATTEND Urology
DX: N20.0 Calculus of kidney (principal)
CPT/HCPCS: 87086

== ENCOUNTER 2019-02-25 16:35 | Emergency (ER) | payer BC, OTHER ==
[~2019-02-25] VITALS: Ht 160 cm; Wt 68.0 kg
[2019-02-25] MEDS ORDERED: METHOCARBAMOL 500 MG TAB PO ONE (17:00)
[2019-02-25] MEDS ORDERED: HYDROcodone-ACET 10/325MG TAB PO ONE (17:00)
[2019-02-25 17:01] VITALS: BP 168/98
== END 2019-02-25 18:19 | disposition home or self-care (01) ==
LOC: ER 16:38
DX: M54.2 Cervicalgia (principal); M54.6 Pain in thoracic spine; M25.512 Pain in left shoulder; I10 Essential (primary) hypertension; E07.9 Disorder of thyroid, unspecified; Z90.49 Acquired absence of other specified parts of digestive tract; Z88.6 Allergy status to analgesic agent; Z88.8 Allergy status to other drugs, medicaments and biological substances; Z79.84 Long term (current) use of oral hypoglycemic drugs; Z79.899 Other long term (current) drug therapy; Z87.442 Personal history of urinary calculi; W18.39XA Other fall on same level, initial encounter; Y93.89 Activity, other specified; Y99.8 Other external cause status; Y92.89 Other specified places as the place of occurrence of the external cause
CPT/HCPCS: 72100; 72125

== ENCOUNTER → 2019-03-01 | Outpatient (CLI) | payer BC ==
[2019-03-01 09:19] LABS: Basophils # (auto) 0 uL; Basophils % (auto) 0.7 % (0.0-2.0); Eosinophils # (auto) 0.2 uL; Eosinophils % (auto) 4.6 % (0.0-7.0); Hematocrit 41.9 % (36.0-46.0); Lymphocytes % (auto) 37.5 % (10.0-50.0); Mean Corpuscular Hemoglobin 28.2 pg (28.0-32.0); Mean Corpuscular Hgb Conc. 33.5 g/dL (32.0-36.0); Mean Corpuscular Volume 84.1 fL (80.0-100.0); Monocytes # (auto) 0.4 uL; Monocytes % (auto) 6.6 % (0.0-12.0); Neutrophils # (auto) 2.7 uL; Neutrophils % (auto) 50.6 % (37.0-80.0); Nucleated Red Blood Cells % 0.1 %; Platelet Count (auto) 322 10^3/uL (140-450); Red Blood Cells 4.98 10^6/uL (4.0-5.20); Red Cell Distribution Width 14.2 % (11.8-14.3); White Blood Cell 5.4 10^3/uL (4.4-10.8)
[2019-03-01 12:24] LABS: Albumin 4.6 g/dL (3.4-5.0); BUN/Creatinine Ratio 12.1; Bilirubin, Total 0.3 mg/dL (0.2-1.0); Calcium 10.9 mg/dL (8.5-10.1); Total Protein 8.4 g/dL (6.4-8.2)
== END | disposition home or self-care (01) ==
LOC: LAB 08:42
DX: N20.0 Calculus of kidney (principal); E03.9 Hypothyroidism, unspecified; I10 Essential (primary) hypertension; N80.9 Endometriosis, unspecified
CPT/HCPCS: 36415; 80053; 80061; 82150; 83036; 83690; 85025; 85652

== ENCOUNTER → 2019-06-20 | Outpatient (CLI) | payer OTHER ==
[~2019-06-20] MED LIST changes: -AMLO5TAB13 PO; +AMLO5TAB15 PO
[2019-06-20 12:21] LABS: Hepatitis B Surface Antibody Positive
[2019-06-20 13:23] LABS: Hepatitis B Surface Antigen Negative (Negative)
== END | disposition home or self-care (01) ==
LOC: LAB 10:59
PROVIDERS: ATTEND Preventive Medicine Preventive Medicine/Occupational Environmental Medicine
DX: Z77.21 Contact with and (suspected) exposure to potentially hazardous body fluids (principal)
CPT/HCPCS: 36415; 86703; 86706; 86803; 87340

== ENCOUNTER → 2019-06-25 | Outpatient (CLI) | payer BC ==
[2019-06-25 13:07] LABS: Basophils # (auto) 0.1 uL; Basophils % (auto) 1.2 % (0.0-2.0); Eosinophils # (auto) 0.3 uL; Eosinophils % (auto) 4.2 % (0.0-7.0); Hematocrit 43.6 % (36.0-46.0); Hemoglobin 14.7 g/dL (12.2-16.2); Lymphocytes # (auto) 1.9 uL; Lymphocytes % (auto) 31.7 % (10.0-50.0); Mean Corpuscular Hemoglobin 28.5 pg (28.0-32.0); Mean Corpuscular Hgb Conc. 33.7 g/dL (32.0-36.0); Mean Corpuscular Volume 84.6 fL (80.0-100.0); Monocytes # (auto) 0.5 uL; Monocytes % (auto) 7.5 % (0.0-12.0); Neutrophils # (auto) 3.3 uL; Neutrophils % (auto) 55.4 % (37.0-80.0); Nucleated Red Blood Cells % 0.1 %; Platelet Count (auto) 344 10^3/uL (140-450); Red Blood Cells 5.15 10^6/uL (4.0-5.20); Red Cell Distribution Width 13.4 % (11.8-14.3)
[2019-06-25 13:10] LABS: Urine Blood Negative /uL (Negative); Urine Specific Gravity 1.008 (1.001-1.035)
[2019-06-25 13:12] LABS: Urine Bacteria NONE SEEN /hpf (None Seen); Urine Blood Negative /uL (Negative); Urine Specific Gravity 1.008 (1.001-1.035); Urine WBC 11 /hpf (0 - 5)
[2019-06-25 13:32] LABS: Albumin 4.9 g/dL (3.4-5.0); Calcium 11.5 mg/dL (8.5-10.1); Magnesium 2.2 mg/dL (1.6-2.6); Potassium 3.9 mmol/L (3.5-5.1); Uric Acid 5.1 mg/dL (2.6-6.0)
[2019-06-25 13:36] LABS: Bilirubin, Total 0.5 mg/dL (0.2-1.0); CRP High Sensitivity 0.02 mg/dL (< 0.3); Phosphorus 2.2 mg/dL (2.5-4.90); Total Protein 8.6 g/dL (6.4-8.2)
[2019-06-25 13:41] LABS: Free T4 (Free Thyroxine) 1.41 ng/dL (0.89-1.76); T3 Total 1.2 ng/mL (0.60-1.81)
[2019-06-25 13:42] LABS: Free T3 3.35 pg/mL (2.3-4.2)
== END | disposition home or self-care (01) ==
LOC: LAB 11:56
PROVIDERS: ATTEND Internal Medicine
DX: Z00.00 Encounter for general adult medical examination without abnormal findings (principal); N20.0 Calculus of kidney; E03.9 Hypothyroidism, unspecified; R53.1 Weakness; I10 Essential (primary) hypertension
CPT/HCPCS: 36415; 80053; 80061; 81001; 81003; 82607; 83036; 83615; 83735; 84100; 84439; 84443; 84480; 84481; 84550; 85025; 85652; 86141